=== PATIENT | female | born 1950 | race Caucasian/White ===

== ENCOUNTER → 2016-10-27 | Outpatient (CLI) | payer MEDICARE, BC ==
--- NOTE | 2016-10-28 10:08 | MM ---
Reason for exam: screening (asymptomatic). Last mammogram was performed 1 year ago. History: Patient is postmenopausal and has history of high-risk lesion on a previous biopsy at age 52. Family history of breast cancer in maternal aunt at age 68. High risk excisional biopsy of the left breast, June 14, 2002. Stereotactic core biopsy, June 07, 2002. Physical Findings: A clinical breast exam by your physician is recommended on an annual basis and results should be correlated with mammographic findings. MG Screening Mammo w CAD Bilateral CC and MLO view(s) were taken. Prior study comparison: October 27, 2015, bilateral MG screening mammo w CAD. September 02, 2014, bilateral MG screening mammo w CAD. There are scattered fibroglandular densities. No significant changes when compared with prior studies. ASSESSMENT: Negative, BI-RAD 1 RECOMMENDATION: Routine screening mammogram of both breasts in 1 year.
== END ==
LOC: RADMAMWWP 15:16
PROVIDERS: ATTEND Internal Medicine
DX: Z12.31 Encounter for screening mammogram for malignant neoplasm of breast (principal)

== ENCOUNTER → 2017-10-30 | Outpatient (CLI) | payer MEDICARE, BC ==
--- NOTE | 2017-10-31 11:59 | MM ---
Reason for exam: screening (asymptomatic). Last mammogram was performed 1 year ago. History: Patient is postmenopausal and has history of high-risk lesion on a previous biopsy at age 52. Family history of breast cancer in maternal aunt at age 68. High risk excisional biopsy of the left breast, June 14, 2002. Stereotactic core biopsy, June 07, 2002. Physical Findings: A clinical breast exam by your physician is recommended on an annual basis and results should be correlated with mammographic findings. MG 3D Screening Mammo W/Cad Bilateral CC and MLO view(s) were taken. Prior study comparison: October 27, 2016, bilateral MG screening mammo w CAD. October 27, 2015, bilateral MG screening mammo w CAD. There are scattered fibroglandular densities. Stable distortion left breast relating to prior excision. Grouped calcifications left anterior upper outer quadrant are unchanged. No significant new findings when compared with previous films. These results were verbally communicated with the patient and result sheet given to the patient on 10/30/17. ASSESSMENT: Benign, BI-RAD 2 RECOMMENDATION: Routine screening mammogram of both breasts in 1 year.
== END | disposition home or self-care (01) ==
LOC: RADMAMWWP 06:52
PROVIDERS: ATTEND Internal Medicine
DX: Z12.31 Encounter for screening mammogram for malignant neoplasm of breast (principal)
CPT/HCPCS: 77063; 77067

== ENCOUNTER → 2019-01-07 | Outpatient (CLI) | payer MEDICARE, BC ==
--- NOTE | 2019-01-08 08:24 | MM ---
Reason for exam: screening (asymptomatic). Last mammogram was performed 1 year and 2 months ago. History: Patient is postmenopausal and has history of high-risk lesion on a previous biopsy at age 52. Family history of breast cancer in maternal aunt at age 68 and premenopausal breast cancer in sister at age 66. High risk excisional biopsy of the left breast, June 14, 2002. Stereotactic core biopsy, June 07, 2002. Physical Findings: A clinical breast exam by your physician is recommended on an annual basis and results should be correlated with mammographic findings. MG 3D Screening Mammo W/Cad Bilateral CC and MLO view(s) were taken. Prior study comparison: October 30, 2017, bilateral MG 3d screening mammo w/cad. October 27, 2016, bilateral MG screening mammo w CAD. There are scattered fibroglandular densities. Finding #1: Architectural distortion in the anterior, middle, central position of the left breast consistent with known excisional biopsy. Finding #2: There are typically benign dystrophic, round calcifications in both breasts. There is no discrete abnormality. ASSESSMENT: Benign, BI-RAD 2 RECOMMENDATION: Routine screening mammogram of both breasts in 1 year.
== END | disposition home or self-care (01) ==
LOC: RADMAMWWP 08:53
PROVIDERS: ATTEND Family Medicine
DX: Z12.31 Encounter for screening mammogram for malignant neoplasm of breast (principal)
CPT/HCPCS: 77063; 77067

== ENCOUNTER → 2020-01-17 | Outpatient (CLI) | payer MEDICARE, BC ==
--- NOTE | 2020-01-20 10:34 | MM ---
Reason for exam: screening (asymptomatic). Last mammogram was performed 1 year ago. History: Patient is postmenopausal and has history of high-risk lesion on a previous biopsy at age 52. Family history of breast cancer in maternal aunt at age 68 and premenopausal breast cancer in sister at age 66. High risk excisional biopsy of the left breast, June 14, 2002. Stereotactic core biopsy, June 07, 2002. Physical Findings: A clinical breast exam by your physician is recommended on an annual basis and results should be correlated with mammographic findings. MG 3D Screening Mammo W/Cad Bilateral CC and MLO view(s) were taken. Prior study comparison: January 07, 2019, bilateral MG 3d screening mammo w/cad. October 30, 2017, bilateral MG 3d screening mammo w/cad. The breast tissue is heterogeneously dense. This may lower the sensitivity of mammography. Asymmetric breast tissue. ASSESSMENT: Benign, BI-RAD 2 RECOMMENDATION: Routine screening mammogram of both breasts in 1 year.
== END | disposition home or self-care (01) ==
LOC: RADMAMWWP 08:18
PROVIDERS: ATTEND Family Medicine
DX: Z12.31 Encounter for screening mammogram for malignant neoplasm of breast (principal)
CPT/HCPCS: 77063; 77067

== ENCOUNTER → 2020-12-14 | Outpatient (CLI) | payer MEDICARE, BC ==
--- NOTE | 2020-12-14 09:59 | MR ---
EXAMINATION TYPE: MR brain wo/w con DATE OF EXAM: 12/14/2020 COMPARISON: None HISTORY: Memory loss TECHNIQUE: Multiplanar, multisequence images of the brain and brainstem is performed without and with IV contras t, utilizing 9 ml mL intravenous Gadavist . FINDINGS: Diffusion weighted images demonstrate no evidence of a recent infarct or other diffusion ab normality. There is no extra-axial fluid collection. There is some scattered hyperintensities on in version recovery T2-weighted sequences within the subcortical, periventricular and pericallosal white matter, approximately 15-20 lesions are present, largest on axial image #23 measures only 3 mm. The ventricular system and cisternal spaces are normal in size and appearance. The brain volume is age a ppropriate, there is likely age-related atrophy. Midline structures demonstrate normal morphology, there is a partially empty sella. The craniocervic al junction appears within normal limits. Post contrast images demonstrate no abnormal enhancement. The dural venous sinuses appear patent. The visualized sinuses are remarkable for mucosal disease wit hin the ethmoid air cells, maxillary sinuses and the globes are intact. IMPRESSION: Nonspecific white matter demyelination could be related to chronic small vessel ischemic changes, there is age-related atrophy. Mild sinus disease.
== END | disposition home or self-care (01) ==
LOC: RADMRIMAIN 08:13
PROVIDERS: ATTEND Family Medicine
DX: R09.82 Postnasal drip (principal); J32.9 Chronic sinusitis, unspecified
CPT/HCPCS: 70553; A9585

== ENCOUNTER → 2021-01-18 | Outpatient (CLI) | payer MEDICARE, BC ==
--- NOTE | 2021-01-19 13:47 | MM ---
Reason for exam: screening (asymptomatic). Last mammogram was performed 1 year ago. History: Patient is postmenopausal and has history of high-risk lesion on a previous biopsy at age 52. Family history of breast cancer in maternal aunt at age 68 and premenopausal breast cancer in sister at age 66. High risk excisional biopsy of the left breast, June 14, 2002. Stereotactic core biopsy, June 07, 2002. Physical Findings: A clinical breast exam by your physician is recommended on an annual basis and results should be correlated with mammographic findings. MG 3D Screening Mammo W/Cad Bilateral CC and MLO view(s) were taken. Prior study comparison: January 17, 2020, bilateral MG 3d screening mammo w/cad. January 07, 2019, bilateral MG 3d screening mammo w/cad. The breast tissue is heterogeneously dense. This may lower the sensitivity of mammography. Stable benign calcifications. Distortion left breast from previous biopsy. No significant changes when compared with prior studies. ASSESSMENT: Benign, BI-RAD 2 RECOMMENDATION: Routine screening mammogram of both breasts in 1 year.
== END | disposition home or self-care (01) ==
LOC: RADMAMWWP 08:23
PROVIDERS: ATTEND Family Medicine
DX: Z12.31 Encounter for screening mammogram for malignant neoplasm of breast (principal); Z78.0 Asymptomatic menopausal state; Z80.3 Family history of malignant neoplasm of breast
CPT/HCPCS: 77063; 77067

== ENCOUNTER 2021-05-29 18:54 | Emergency (ER) | payer MEDICARE, BC ==
[2021-05-29 19:08] VITALS: TEMP 97.7
--- NOTE | 2021-05-29 19:10 | ED ---
General Adult HPI - General Chief complaint: Abdominal Pain Stated complaint: syncope; [place] Time Seen by Provider: 05/29/21 19:04 Source: patient, EMS Mode of arrival: EMS Limitations: no limitations - History of Present Illness Initial comments: Patient presents to the ED by ambulance for evaluation. Patient states that she has felt generally weak and lightheaded today. Patient also states that she has had central abdominal pain for the past month or so, and she states that her pain has become worse today. Patient is also complaining of having back pain and left shoulder pain. Patient reportedly had a syncopal episode while at home today. EMS reports that the patient was hypotensive and tachycardic upon their arrival. Patient also admits to having nausea and vomiting today, as well as feeling dyspneic today. Patient denies trauma or injury, fever or chills, headache, focal numbness/weakness/neuro deficit, visual changes, neck pain, ex tremity pain, chest pain, palpitations, cough or cold symptoms, diarrhea or constipation, bloody or melanotic stool, hematemesis, dysuria/urinary frequency/hematuria/urinary symptoms, leg or calf swelling or pain, or any other symptoms or complaints. - Related Data Home Medications Medication Instructions Recorded Confirmed Dicyclomine [Bentyl] 20 mg PO QID PRN 05/29/21 05/29/21 Donepezil [Aricept] 5 mg PO DAILY 05/29/21 05/29/21 Fluticasone Nasal [place] [Flonase 1 spray EA NOSTRIL DAILY 05/29/21 05/29/21 Nasal [place]] Levothyroxine Sodium [Synthroid] 25 mcg PO DAILY 05/29/21 05/29/21 Olopatadine HCl [Patanase] 1 spray NASAL DAILY PRN 05/29/21 05/29/21 Ondansetron Odt [Zofran Odt] 4 mg PO Q12HR PRN 05/29/21 05/29/21 Sertraline [Zoloft] 50 mg PO DAILY 05/29/21 05/29/21 Allergies Allergy/AdvReac Type Severity Reaction Status Date / Time fluoxetine [From Prozac] AdvReac Nausea & Verified 05/29/21 21:47 Vomiting Review of Systems ROS Statement: Those systems with pertinent positive or pertinent negative responses have been documented in the HPI. ROS Other: All systems not noted in ROS Statement are negative. Past Medical History Past Medical History: No Reported History Additional Past Medical History / Comment(s): Hypothyroidism, anemia History of Any Multi-Drug Resistant Organisms: None Reported Past Surgical History: Appendectomy, Joint Replacement, Orthopedic Surgery Past Psychological History: No Psychological Hx Reported Smoking Status: Never smoker Past Alcohol Use History: Occasional Past Drug Use History: None Reported General Exam Limitations: no limitations General appearance: alert Head exam: Present: atraumatic, normocephalic Eye exam: Present: normal appearance, PERRL, EOMI ENT exam: Present: mucous membranes moist, TM's normal bilaterally Neck exam: Present: other (Trachea is in midline). Absent: tenderness, meningi smus Respiratory exam: Present: normal lung sounds bilaterally. Absent: respiratory distress, wheezes, rales, rhonchi, stridor Cardiovascular Exam: Present: normal rhythm, tachycardia, normal heart sounds, other (Normal radial pulses bilaterally) GI/Abdominal exam: Present: soft, normal bowel sounds, other (Mild epigastric abdominal tenderness; obese abdomen). Absent: guarding, rebound Extremities exam: Present: other (Negative Homans sign bilaterally). Absent: tenderness, pedal edema, calf tenderness Back exam: Absent: tenderness Neurological exam: Present: alert, oriented X3, CN II-XII intact. Absent: motor sensory deficit Psychiatric exam: Present: normal affect, normal mood Skin exam: Present: warm, dry, intact, other (Patient appears somewhat pale in appearance) Course Vital Signs 05/29/21 05/29/21 05/29/21 18:59 20:30 21:00 Temperature 97.7 F Pulse Rate 136 H 105 H 112 H Respiratory 18 16 16 Rate Blood Pressure 91/66 71/60 100/89 O2 Sat by Pulse 92 L 94 L 94 L Oximetry 05/29/21 21:54 Temperature Pulse Rate 118 H Respiratory 16 Rate Blood Pressure 75/33 O2 Sat by Pulse 93 L Oximetry - Reevaluation(s) Reevaluation #1: 05/29/21 22:06 Case, H&P, test results and ED management thus far were discussed with Dr. Ríos (general surgery). He recommends transferring the patient to a tertiary care hospital with hepatobiliary surgery availability. He states that he feels that given the patient's CT findings and lab abnormalities, he feels that the patient's free air may be related to necrotizing pancreatitis or a pancreatic mass, and he said he is unable to manage a case like that. He does not feel that there is even anything temporizing that he can offer the patient at this time. He has no further recommendations at this time. 05/29/21 22:16 Case, H&P, test results, ED management thus far and my discussion with Dr. Ríos as above were discussed with Dr. Hernandez (surgical AOD at [facility]). He accepts ambulance transfer to [facility] emergency department. He has no further recommendations at this time. 05/29/21 23:05 Patient and are aware the patient's test results and my discussions as above. Patient denies development of any new symptoms while in the ED. Patient and both agree with ambulance transfer to [facility] ED. Patient's blood pressure has been labile while in the ED, but her blood pressure did improve with IV fluid hydration. Patient's most recent systolic blood pressure prior to ambulance transfer was 89. EKG Findings - EKG Comments: EKG Findings:: Sinus tachycardia, ventricular rate of 122 bpm, no ectopy, normal MA and QRS intervals, normal QT interval, normal axis, no ST or T-wave ab normality Medical Decision Making - Medical Decision Making I suspect that the patient's symptoms/findings are likely secondary to a perforated abdominal hollow viscus. Patient's CT demonstrates a complex abdominal mass, which may represent an abscess possibly from a pancreatic source given her labs and CT findings. Dr. Ríos (general surgery) was consulted from the ED, and he recommended transfer to a tertiary care facility with specialty s urgery service availability. Patient was accepted for ambulance transfer to the [facility] ED by Dr. Hernandez (surgical AOD). Patient was fluid resuscitated in the ED, and she was also provided with IV antibiotics in the ED. Patient's troponin is minimally elevated, but she denies having any chest pain and her EKG shows no acute ischemic findings. Patient was not given aspirin in the ED given her surgical abdomen. Patient was transferred by ambulance to [facility] ED in stable condition. - Lab Data Result diagrams: 05/29/21 19:19 05/29/21 19:19 Lab Results 11/06/21 11/06/21 11/06/21 Range/Units 19:19 19:19 19:19 WBC 2.3 L (3.8-10.6) k/uL RBC 4.68 (3.80-5.40) m/uL Hgb 14.6 (11.4-16.0) gm/dL Hct 43.9 (34.0-46.0) % MCV 93.7 (80.0-100.0) fL MCH 31.2 (25.0-35.0) pg MCHC 33.3 (31.0-37.0) g/dL RDW 13.8 (11.5-15.5) % Plt Count 191 (150-450) k/uL MPV 8.0 Neutrophils % (Manual) 46 % Band Neuts % (Manual) 13 % Lymphocytes % (Manual) 30 % Monocytes % (Manual) 10 % Eosinophils % (Manual) 1 % Neutrophils # (Manual) 1.30 (1.3-7.7) k/uL Lymphocytes # (Manual) 0.69 L (1.0-4.8) k/uL Monocytes # (Manual) 0.23 (0-1.0) k/uL Eosinophils # (Manual) 0.02 (0-0.7) k/uL Nucleated RBCs 0 (0-0) /100 WBC Poikilocytosis (manual Present PT 10.8 (9.0-12.0) sec INR 1.0 (<1.2) APTT 20.0 L (22.0-30.0) sec D-Dimer 16.34 H (<0.60) mg/L FEU Sodium (137-145) mmol/L Potassium (3.5-5.1) mmol/L Chloride (98-107) mmol/L Carbon Dioxide (22-30) mmol/L Anion Gap mmol/L BUN (7-17) mg/dL Creatinine (0.52-1.04) mg/dL Est GFR (CKD-EPI)AfAm (>60 ml/min/1.73 sqM) Est GFR (CKD-EPI)NonAf (>60 ml/min/1.73 sqM) Glucose (74-99) mg/dL Lactic Ac Sepsis Rflx Plasma Lactic Acid Emmanuel (0.7-2.0) mmol/L Calcium (8.4-10.2) mg/dL Magnesium (1.6-2.3) mg/dL Total Bilirubin (0.2-1.3) mg/dL AST (14-36) U/L ALT (4-34) U/L Alkaline Phosphatase (38-126) U/L Troponin I (0.000-0.034) ng/mL NT-Pro-B Natriuret Pep pg/mL Total Protein (6.3-8.2) g/dL Albumin (3.5-5.0) g/dL Lipase (23-300) U/L TSH (0.465-4.680) mIU/L Urine Color Yellow Urine Appearance Cloudy H (Clear) Urine pH 6.0 (5.0-8.0) Ur Specific Bowman 1.036 H (1.001-1.035) Urine Protein 1+ H (Negative) Urine Glucose (UA) 3+ H (Negative) Urine Ketones Trace H (Negative) Urine Blood Moderate H (Negative) Urine Nitrite Negative (Negative) Urine Bilirubin Negative (Negative) Urine Urobilinogen <2.0 (<2.0) mg/dL Ur Leukocyte Esterase Negative (Negative) Urine RBC 2 (0-5) /hpf Urine WBC 12 H (0-5) /hpf Ur Squamous Epith Cells <1 (0-4) /hpf Urine Mucus Moderate H (None) /hpf Coronavirus (PCR) (Not Detectd) Blood Type Blood Type Confirm Blood Type Recheck Bld Type Recheck Status Antibody Screen Spec Expiration Date 05/29/21 05/29/21 05/29/21 Range/Units 19:19 19:19 19:19 WBC (3.8-10.6) k/uL RBC (3.80-5.40) m/uL Hgb (11.4-16.0) gm/dL Hct (34.0-46.0) % MCV (80.0-100.0) fL MCH (25.0-35.0) pg MCHC (31.0-37.0) g/dL RDW (11.5-15.5) % Plt Count (150-450) k/uL MPV Neutrophils % (Manual) % Band Neuts % (Manual) % Lymphocytes % (Manual) % Monocytes % (Manual) % Eosinophils % (Manual) % Neutrophils # (Manual) (1.3-7.7) k/uL Lymphocytes # (Manual) (1.0-4.8) k/uL Monocytes # (Manual) (0-1.0) k/uL Eosinophils # (Manual) (0-0.7) k/uL Nucleated RBCs (0-0) /100 WBC Poikilocytosis (manual PT (9.0-12.0) sec INR (<1.2) APTT (22.0-30.0) sec D-Dimer (<0.60) mg/L FEU Sodium 138 (137-145) mmol/L Potassium 3.2 L (3.5-5.1) mmol/L Chloride 107 (98-107) mmol/L Carbon Dioxide 15 L (22-30) mmol/L Anion Gap 16 mmol/L BUN 16 (7-17) mg/dL Creatinine 1.66 H (0.52-1.04) mg/dL Est GFR (CKD-EPI)AfAm 36 (>60 ml/min/1.73 sqM) Est GFR (CKD-EPI)NonAf 31 (>60 ml/min/1.73 sqM) Glucose 99 (74-99) mg/dL Lactic Ac Sepsis Rflx Plasma Lactic Acid Emmanuel 10.6 H* (0.7-2.0) mmol/L Calcium 9.8 (8.4-10.2) mg/dL Magnesium 2.1 (1.6-2.3) mg/dL Total Bilirubin 1.6 H (0.2-1.3) mg/dL AST 74 H (14-36) U/L ALT 28 (4-34) U/L Alkaline Phosphatase 58 (38-126) U/L Troponin I 0.884 H* (0.000-0.034) ng/mL NT-Pro-B Natriuret Pep pg/mL Total Protein 5.9 L (6.3-8.2) g/dL Albumin 3.4 L (3.5-5.0) g/dL Lipase (23-300) U/L TSH 1.260 (0.465-4.680) mIU/L Urine Color Urine Appearance (Clear) Urine pH (5.0-8.0) Ur Specific Bowman (1.001-1.035) Urine Protein (Negative) Urine Glucose (UA) (Negative) Urine Ketones (Negative) Urine Blood (Negative) Urine Nitrite (Negative) Urine Bilirubin (Negative) Urine Urobilinogen (<2.0) mg/dL Ur Leukocyte Esterase (Negative) Urine RBC (0-5) /hpf Urine WBC (0-5) /hpf Ur Squamous Epith Cells (0-4) /hpf Urine Mucus (None) /hpf Coronavirus (PCR) (Not Detectd) Blood Type Blood Type Confirm Blood Type Recheck Bld Type Recheck Status Antibody Screen Spec Expiration Date 05/29/21 05/29/21 05/29/21 Range/Units 19:19 19:19 19:19 WBC (3.8-10.6) k/uL RBC (3.80-5.40) m/uL Hgb (11.4-16.0) gm/dL Hct (34.0-46.0) % MCV (80.0-100.0) fL MCH (25.0-35.0) pg MCHC (31.0-37.0) g/dL RDW (11.5-15.5) % Plt Count (150-450) k/uL MPV Neutrophils % (Manual) % Band Neuts % (Manual) % Lymphocytes % (Manual) % Monocytes % (Manual) % Eosinophils % (Manual) % Neutrophils # (Manual) (1.3-7.7) k/uL Lymphocytes # (Manual) (1.0-4.8) k/uL Monocytes # (Manual) (0-1.0) k/uL Eosinophils # (Manual) (0-0.7) k/uL Nucleated RBCs (0-0) /100 WBC Poikilocytosis (manual PT (9.0-12.0) sec INR (<1.2) APTT (22.0-30.0) sec D-Dimer (<0.60) mg/L FEU Sodium (137-145) mmol/L Potassium (3.5-5.1) mmol/L Chloride (98-107) mmol/L Carbon Dioxide (22-30) mmol/L Anion Gap mmol/L BUN (7-17) mg/dL Creatinine (0.52-1.04) mg/dL Est GFR (CKD-EPI)AfAm (>60 ml/min/1.73 sqM) Est GFR (CKD-EPI)NonAf (>60 ml/min/1.73 sqM) Glucose (74-99) mg/dL Lactic Ac Sepsis Rflx Plasma Lactic Acid Emmanuel (0.7-2.0) mmol/L Calcium (8.4-10.2) mg/dL Magnesium (1.6-2.3) mg/dL Total Bilirubin (0.2-1.3) mg/dL AST (14-36) U/L ALT (4-34) U/L Alkaline Phosphatase (38-126) U/L Troponin I (0.000-0.034) ng/mL NT-Pro-B Natriuret Pep 12538 pg/mL Total Protein (6.3-8.2) g/dL Albumin (3.5-5.0) g/dL Lipase (23-300) U/L TSH (0.465-4.680) mIU/L Urine Color Urine Appearance (Clear) Urine pH (5.0-8.0) Ur Specific Bowman (1.001-1.035) Urine Protein (Negative) Urine Glucose (UA) (Negative) Urine Ketones (Negative) Urine Blood (Negative) Urine Nitrite (Negative) Urine Bilirubin (Negative) Urine Urobilinogen (<2.0) mg/dL Ur Leukocyte Esterase (Negative) Urine RBC (0-5) /hpf Urine WBC (0-5) /hpf Ur Squamous Epith Cells (0-4) /hpf Urine Mucus (None) /hpf Coronavirus (PCR) Not Detected (Not Detectd) Blood Type A Positive Blood Type Confirm Blood Type Recheck No Previous Record Bld Type Recheck Status CABO Indicated Antibody Screen NEGATIVE Spec Expiration Date 06/01/2021231805/29/21 05/29/21 05/29/21 Range/Units 19:51 20:28 20:29 WBC (3.8-10.6) k/uL RBC (3.80-5.40) m/uL Hgb (11.4-16.0) gm/dL Hct (34.0-46.0) % MCV (80.0-100.0) fL MCH (25.0-35.0) pg MCHC (31.0-37.0) g/dL RDW (11.5-15.5) % Plt Count (150-450) k/uL MPV Neutrophils % (Manual) % Band Neuts % (Manual) % Lymphocytes % (Manual) % Monocytes % (Manual) % Eosinophils % (Manual) % Neutrophils # (Manual) (1.3-7.7) k/uL Lymphocytes # (Manual) (1.0-4.8) k/uL Monocytes # (Manual) (0-1.0) k/uL Eosinophils # (Manual) (0-0.7) k/uL Nucleated RBCs (0-0) /100 WBC Poikilocytosis (manual PT (9.0-12.0) sec INR (<1.2) APTT (22.0-30.0) sec D-Dimer (<0.60) mg/L FEU Sodium (137-145) mmol/L Potassium (3.5-5.1) mmol/L Chloride (98-107) mmol/L Carbon Dioxide (22-30) mmol/L Anion Gap mmol/L BUN (7-17) mg/dL Creatinine (0.52-1.04) mg/dL Est GFR (CKD-EPI)AfAm (>60 ml/min/1.73 sqM) Est GFR (CKD-EPI)NonAf (>60 ml/min/1.73 sqM) Glucose (74-99) mg/dL Lactic Ac Sepsis Rflx Y Plasma Lactic Acid Emmanuel (0.7-2.0) mmol/L Calcium (8.4-10.2) mg/dL Magnesium (1.6-2.3) mg/dL Total Bilirubin (0.2-1.3) mg/dL AST (14-36) U/L ALT (4-34) U/L Alkaline Phosphatase (38-126) U/L Troponin I (0.000-0.034) ng/mL NT-Pro-B Natriuret Pep pg/mL Total Protein (6.3-8.2) g/dL Albumin (3.5-5.0) g/dL Lipase 2245 H (23-300) U/L TSH (0.465-4.680) mIU/L Urine Color Urine Appearance (Clear) Urine pH (5.0-8.0) Ur Specific Bowman (1.001-1.035) Urine Protein (Negative) Urine Glucose (UA) (Negative) Urine Ketones (Negative) Urine Blood (Negative) Urine Nitrite (Negative) Urine Bilirubin (Negative) Urine Urobilinogen (<2.0) mg/dL Ur Leukocyte Esterase (Negative) Urine RBC (0-5) /hpf Urine WBC (0-5) /hpf Ur Squamous Epith Cells (0-4) /hpf Urine Mucus (None) /hpf Coronavirus (PCR) (Not Detectd) Blood Type Blood Type Confirm A Positive Blood Type Recheck Bld Type Recheck Status Antibody Screen Spec Expiration Date - Radiology Data Radiology results: report reviewed (Chest x-ray: Large hiatal hernia. No definite acute lung disease. No heart failure seen.) Noncontrast head CT: Cerebral atrophy. No acute intracranial abnormality. CT angiography chest with IV contrast: No evidence of pulmonary embolism. Infiltrates and atelectasis and pleural fluid at the lung bases. Large hiatal hernia. Pneumoperitoneum. CT abdomen/pelvis with IV contrast: Large pneumoperitoneum. Complex mass containing debris and fluid and air in the upper abdomen consistent with an abscess adjacent to the stomach and pancreas. Gastric perforation is possible. Pancreatitis is possible. There is abdominal ascites. Critical Care Time Critical Care Time: Yes Total Critical Care Time: 90 Disposition Clinical Impression: Syncope, Abdominal pain, Elevated troponin, Pancreatitis, Pneumoperitoneum, Intraabdominal mass Disposition: OTHER INSTITUTION NOT DEFINED Condition: Stable Is patient prescribed a controlled substance at d/c from ED?: No Referrals: Nonstaff,Physician [REFERRING] - 1-2 days Time of Disposition: 22:32 - Out of Hospital Transfer - Req. Specs Out of Hospital Transfer - Requested Specifics: Other Emergency Center ([facility])
[2021-05-29] MEDS ORDERED: MORPHINE SULFATE 2 MG/ML SYRINGE IVP STA (19:15)
[2021-05-29] MEDS ORDERED: SODIUM CHLORIDE 0.9% 1,000 ML IV STA (19:15)
--- NOTE | 2021-05-29 19:47 | XR ---
EXAMINATION TYPE: XR chest 1V portable DATE OF EXAM: 05/29/2021 COMPARISON: NONE HISTORY: Weakness TECHNIQUE: Single view FINDINGS: There is large hiatal hernia. There is no heart failure. Heart size is fairly normal. There is no pleural effusion. IMPRESSION: Large hiatal hernia. No definite acute lung disease. No heart failure seen.
[2021-05-29 20:02] LABS: HCT 43.9 % (34.0-46.0); HGB 14.6 gm/dL (11.4-16.0); MCH 31.2 pg (25.0-35.0); MCHC 33.3 g/dL (31.0-37.0); MCV 93.7 fL (80.0-100.0); Platelet Count 191 k/uL (150-450); RBC 4.68 m/uL (3.80-5.40); RDW 13.8 % (11.5-15.5); WBC 2.3 k/uL (3.8-10.6)
[2021-05-29 20:07] LABS: Albumin 3.4 g/dL (3.5-5.0); Calcium 9.8 mg/dL (8.4-10.2); Magnesium 2.1 mg/dL (1.6-2.3); Potassium 3.2 mmol/L (3.5-5.1); Total Bilirubin 1.6 mg/dL (0.2-1.3); Total Protein 5.9 g/dL (6.3-8.2)
[2021-05-29 20:16] LABS: Prothrombin Time 10.8 sec (9.0-12.0)
[2021-05-29] MEDS ORDERED: SODIUM CHLORIDE 0.9% 1,000 ML IV ONE ×2 (20:24→22:22)
[2021-05-29 20:29] LABS: Band Neutrophils % 13 %; Eosinophils # (M) 0.02 k/uL (0-0.7); Lymphocytes # (M) 0.69 k/uL (1.0-4.8); Monocytes # (M) 0.23 k/uL (0-1.0); Neutrophils % (M) 46 %; Nucleated Red Blood Cells 0 /100 WBC (0-0); Poikilocytosis (M) Present; Total Cells Counted 100
[2021-05-29 20:31] VITALS: RESP 16
--- NOTE | 2021-05-29 21:36 | CT ---
EXAMINATION TYPE: CT brain wo con DATE OF EXAM: 05/29/2021 COMPARISON: None HISTORY: syncope CT DLP: 1188.4 mGycm Automated exposure control for dose reduction was used. Ventricles have normal size. There is cerebral cortical atrophy. There is no mass effect nor midline shift. There is no sign of intracranial hemorrhage. Calvarium is intact. There is normal aeration of the mastoid sinuses. IMPRESSION: Cerebral atrophy. No acute intracranial abnormality.
[2021-05-29] MEDS ORDERED: PIPERACILLIN-TAZOBACTAM 4.5 GM in SODIUM CHLORIDE 0.9% 100 ML IVPB STA (21:59)
--- NOTE | 2021-05-29 22:05 | CT ---
EXAMINATION TYPE: CT chest angio for PE DATE OF EXAM: 05/29/2021 COMPARISON: None HISTORY: Syncope, tachcardia, elevated d-dimer. CT DLP: 2036.8 mGycm Automated exposure control for dose reduction was used. CONTRAST: Performed with IV Contrast, patient injected with 80 mL of Isovue 370. There are 3-D post processed images. There is some interstitial infiltrates in the mid and lower lung orantes. There is some mild atelectas is at the lung bases. There are small pleural effusions. There is very large hiatal hernia. There is no mediastinal adenopathy. There are no hilar masses. There is pneumoperitoneum. Thoracic aorta is atheromatous. There is no evidence of filling defect in the pulmonary arteries. IMPRESSION: No evidence of pulmonary embolism. Infiltrates and atelectasis and pleural fluid at the lung bases. L arge hiatal hernia. Pneumoperitoneum. This exam was discussed with emergency room attending staff at 10:00 PM.
--- NOTE | 2021-05-29 22:24 | CT ---
EXAMINATION TYPE: CT abdomen pelvis w con DATE OF EXAM: 05/29/2021 COMPARISON: None HISTORY: Abdominal pain CT DLP: mGycm Automated exposure control for dose reduction was used. CONTRAST: The IV contrast was Isovue 80 mL. Images obtained from the diaphragm to the floor the pelvis. There is infiltrate and atelectasis at the lung bases. There is small pleural effusions. There is lar ge hiatal hernia. There is large complex collection of fluid and air and debris in the upper abdomen which appears anterior to the stomach and pancreas and suggestive of a large abscess. There is a mode rate-sized pneumoperitoneum. There is fluid in the anterior pararenal space bilaterally. There is romie e fluid around the pancreas. There is abdominal ascites and free fluid in the pelvis. I see no eviden ce of a bowel obstruction. There is no adrenal mass. Kidneys show satisfactory contrast opacification. There is no hydronephrosi s. There is no retroperitoneal adenopathy. The lumbar spine shows a mild degenerative first-degree L4-5 spondylolisthesis. There is some mild sp inal stenosis at L4-5. The bony pelvis is intact. The hip joints are intact. Sacroiliac joints are in tact. IMPRESSION: Large pneumoperitoneum. Complex mass containing debris and fluid and air in the upper abdomen consist ent with an abscess adjacent to the stomach and pancreas. Gastric perforation is possible. Pancreatit is is possible. There is abdominal ascites. This exam was discussed with emergency room attending staff at 10:00 PM.
[2021-05-29 22:50] LABS: Appearance,Urine Cloudy (Clear); Bilirubin,Urine Negative (Negative); Blood,Urine Moderate (Negative); Color,Urine Yellow; Glucose,Urine (UA) 3+ (Negative); Ketones,Urine Trace (Negative); Leukocyte Esterase,Urine Negative (Negative); Mucus,Urine Moderate /hpf; Nitrite,Urine Negative (Negative); Protein,Urine 1+ (Negative); RBC,Urine 2 /hpf (0-5); Specific Gravity,Urine 1.036 (1.001-1.035); Squamous Epithelial Cell,Urine <1 /hpf (0-4); Urobilinogen,Urine <2.0 mg/dL (<2.0); WBC,Urine 12 /hpf (0-5)
[2021-05-29 23:37] VITALS: BP 80/30; PULSE 120
== END 2021-05-29 23:20 | disposition other institution (70) ==
LOC: EC 18:54
DX: R55 Syncope and collapse (principal); R10.9 Unspecified abdominal pain; K85.90 Acute pancreatitis without necrosis or infection, unspecified; R77.8 Other specified abnormalities of plasma proteins; R19.00 Intra-abdominal and pelvic swelling, mass and lump, unspecified site; E03.9 Hypothyroidism, unspecified; Z88.8 Allergy status to other drugs, medicaments and biological substances; Z79.890 Hormone replacement therapy; Z20.822 Contact with and (suspected) exposure to COVID-19
CPT/HCPCS: 36415; 93005; 86900; 86901; 85379; 83880; 80053; 83605; 83690; 83735; 84443; 84484; 85025; 85610; 85730; 86850; 81001; 87086; 87635; 71045; 70450; 71275; 74177; 99285; 96365; 96361; J2543; Q9967